=== PATIENT | female | born 1965 ===

== ENCOUNTER 2017-04-16 21:31 | Emergency (ER) | payer BC ==
[2017-04-16 21:50] VITALS: TEMP 98.6
[2017-04-16] MEDS ORDERED: DiphenhydrAMINE 50 mg/ml Inj IVP STA (22:31)
[2017-04-16] MEDS ORDERED: Sodium Chloride 0.9% 1,000 ML IV STA (22:31)
--- NOTE | 2017-04-16 23:25 | CT ---
EXAM: CT Neck Without Intravenous Contrast CLINICAL HISTORY: 51 years old, female; Signs and symptoms; Other: Throat pain/feeling of throat closing TECHNIQUE: Axial computed tomography images of the neck without intravenous contrast. All CT scans at this facility use one or more dose reduction techniques, viz.: automated exposure control; ma/kV adjustment per patient size (including targeted exams where dose is matched to indication; i.e. head); or iterative reconstruction technique. Coronal and sagittal reformatted images were created and reviewed. COMPARISON: No relevant prior studies available. FINDINGS: Nasopharynx: Unremarkable. Oropharynx: Unremarkable. No significant tonsillar enlargement. Hypopharynx: Unremarkable. Larynx: Unremarkable. Normal epiglottis. Trachea: Unremarkable. Retropharyngeal space: Unremarkable. Submandibular/parotid glands: Unremarkable. Thyroid: Unremarkable. No enlarged or calcified nodules. Bones/joints: No acute fracture. Soft tissues: Unremarkable. Vasculature: No acute findings. Lymph nodes: Unremarkable. No pathologically enlarged lymphadenopathy. Lung apices: Unremarkable as visualized. IMPRESSION: Unremarkable contrast-enhanced CT the soft tissues of the neck, as detailed above.
[2017-04-16 23:31] LABS: BASO # 0.02 K/mm3 (0.0-2.0); BASO % 0.2 % (0.0-3.0); EOS # 0.3 (0.0-0.7); EOS % 3.6 % (1.5-5.0); GRAN # 5.81 (1.4-6.5); GRAN % 67.7 % (50.0-68.0); HEMATOCRIT 39.5 % (36.0-48.0); LYMPH # 1.8 (1.2-3.4); LYMPH % 20.6 % (22.0-35.0); MEAN CELL VOLUME 91.6 fl (80.0-105.0); MEAN CORPUSCULAR HEMOGLOBIN 30.6 pg (25.0-35.0); MEAN CORPUSCULAR HGB CONC 33.4 g/dl (31.0-37.0); MEAN PLATELET VOLUME 11.8 fl (7.0-11.0); MONO # 0.7 (0.1-0.6); MONO % 7.9 % (1.0-6.0); RED CELL DISTRIBUTION WIDTH 13.4 % (11.5-14.5); WHITE BLOOD COUNT 8.6 10^3/ul (4.5-11.0)
[2017-04-16 23:36] LABS: ALB/GLOB RATIO 1.7 (1.1-1.8); ALKALINE PHOSPHATASE 79 U/L (38-133); ALT/SGPT 29 U/L (7-56); AST/SGOT 26 U/L (15-39); BILIRUBIN,TOTAL 0.5 mg/dL (0.2-1.3); BLOOD UREA NITROGEN 12 mg/dL (7-21); CALCIUM 9.5 mg/dL (8.4-10.5); CARBON DIOXIDE 28 mmol/L (21-33); CHLORIDE 105 mmol/L (98-107); GFR AFRICAN-AMERICAN > 60; GLUCOSE,RANDOM 103 mg/dL (70-110); POTASSIUM 3.8 mmol/L (3.6-5.0); SODIUM 144 mmol/L (132-148); TOTAL PROTEIN 7.3 g/dL (5.8-8.3)
--- NOTE | 2017-04-16 23:36 | ED PDOC ---
Arrival/HPI - General Chief Complaint: ENT Problem Time Seen by Provider: 04/16/17 22:31 Historian: Patient - History of Present Illness Narrative History of Present Illness (Text): 04/16/17 23:50 51-year-old female presents today with sore throat and feeling of throat closing that started around 7 PM after taking a drink of Cristina [place] Esther. Patient denies history of allergy to this drink. Patient states she has taken this in the past. Patient states shortly after taking a drink she felt a burning sensation in the throat and then she tried to drink it again and the pain worsened. No medications have been taken for pain at home. She is complaining of difficulty swallowing, pain with swallowing and feeling like the throat is getting tight. She denies chest pain or shortness of breath. No other complaints Past Medical History - Provider Review Nursing Documentation Reviewed: Yes - Travel History Have you recently traveled outside [place] w/in the past 3 mons?: No - Tetanus Immunization Tetanus Immunization: Unknown - Reproductive Menopause: Yes - Psychiatric Hx Substance Use: No Family/Social History - Physician Review Nursing Documentation Reviewed: Yes Family/Social History: Unknown Family HX Smoking Status: Never Smoked Hx Alcohol Use: No Hx Substance Use: No Allergies/Home Meds Allergies/Adverse Reactions: Allergies No Known Allergies Allergy (Verified 04/16/17 21:49) Review of Systems - Review of Systems Constitutional: absent: Fatigue, Fevers ENT: Sore Throat. absent: Sinus Congestion Respiratory: absent: SOB, Cough Cardiovascular: absent: Chest Pain, Palpitations Gastrointestinal: absent: Abdominal Pain, Nausea, Vomiting Genitourinary Female: absent: Dysuria, Frequency, Hematuria Musculoskeletal: absent: Arthralgias, Back Pain, Neck Pain Skin: absent: Rash, Pruritis Neurological: absent: Headache, Dizziness Psychiatric: absent: Anxiety, Depression Physical Exam Vital Signs Reviewed: Yes Vital Signs Temp Pulse Resp BP Pulse Ox 04/16/17 23:31 82 17 113/68 99 04/16/17 21:50 98.6 F 89 18 156/77 H 95 Temperature: Afebrile Blood Pressure: Hypertensive Pulse: Regular Respiratory Rate: Normal Appearance: Positive for: Well-Appearing, Non-Toxic, Uncomfortable Pain Distress: None Mental Status: Positive for: Alert and Oriented X 3 - Systems Exam Head: Present: Atraumatic Pupils: Present: PERRL Extroacular Muscles: Present: EOMI Conjunctiva: Present: Normal Mouth: Present: Moist Mucous Membranes, Normal Lips, Normal Tounge, Normal Teeth. No: Drooling, Trismus Pharnyx: Present: ERYTHEMA. No: EXUDATE, TONSILS ENLARGED, Peritonsilar Swelling, Uvular Deviation, Muffled/Hoarse Voice Nose (External): Present: Atraumatic Nose (Internal): Present: Normal Inspection Neck: Present: Normal Range of Motion, Trachea Midline. No: Lymphadenopathy Respiratory/Chest: Present: Clear to Auscultation, Good Air Exchange. No: Respiratory Distress, Accessory Muscle Use Cardiovascular: Present: Regular Rate and Rhythm, Normal S1, S2. No: Murmurs Neurological: Present: GCS=15 Skin: Present: Warm, Dry, Normal Color. No: Rashes Psychiatric: Present: Alert, Oriented x 3 Medical Decision Making ED Course and Treatment: 04/16/17 23:35 Patient is nontoxic well-appearing in no distress with stable vital signs no angioedema. pt c/o sore throat, throat swelling/pain with swallowing. Lungs are clear to auscultation bilaterally there is no wheezing noted. The airway is patent Benadryl 25 mg IV Solu-Medrol 125 mg IV Pepcid 20 mg IV toradol IV ct neck; FINDINGS: Nasopharynx: Unremarkable. Oropharynx: Unremarkable. No significant tonsillar enlargement. Hypopharynx: Unremarkable. Larynx: Unremarkable. Normal epiglottis. Trachea: Unremarkable. Retropharyngeal space: Unremarkable. Submandibular/parotid glands: Unremarkable. Thyroid: Unremarkable. No enlarged or calcified nodules. Bones/joints: No acute fracture. Soft tissues: Unremarkable. Vasculature: No acute findings. Lymph nodes: Unremarkable. No pathologically enlarged lymphadenopathy. Lung apices: Unremarkable as visualized. IMPRESSION: Unremarkable contrast-enhanced CT the soft tissues of the neck, as detailed above. Patient reassessment: After medications patient is feeling much better the lungs are clear to auscultation bilaterally the airway is patent the patient is speaking in full sentences. I advised taking Benadryl every 6 hours as well as prednisone daily x4 days. will start patient on amoxicillin for possible throat infection as pharynx is erythematous. Advised patient to follow up with primary care physician within the next 2 days and return if symptoms worsen persist or if new symptoms develop. Patient verbalizes understanding of discharge instructions and need for immediate followup. all aspects of this case were discussed the attending of record. Impression : Throat pain Benadryl every 6 hours as needed for itch Prednisone once daily x4 days Pepcid one tablet daily Amoxicillin; 3 times daily x 10 days. Follow up with the primary care physician tomorrow Follow up with the ENT specialist within the next 2 days. Return if symptoms worsen persist or if new symptoms develop: Shortness of breath, feeling of throat closing, difficulty speaking or any other concerning symptoms develop - Lab Interpretations Lab Results: 04/16/17 23:15 04/16/17 23:15 Lab Results 04/16/17 23:15: WBC 8.6, RBC 4.31, Hgb 13.2, Hct 39.5, MCV 91.6, MCH 30.6, MCHC 33.4, RDW 13.4, Plt Count 183, MPV 11.8 H, Gran % 67.7, Lymph % (Auto) 20.6 L, Glynn % (Auto) 7.9 H, Eos % (Auto) 3.6, Baso % (Auto) 0.2, Gran # 5.81, Lymph # 1.8, Glynn # 0.7 H, Eos # 0.3, Baso # 0.02 04/16/17 23:15: Sodium 144, Potassium 3.8, Chloride 105, Carbon Dioxide 28, Anion Gap 15, BUN 12, Creatinine 0.9, Est GFR ( Amer) > 60, Est GFR (Non- Af Amer) > 60, Random Glucose 103, Calcium 9.5, Total Bilirubin 0.5, AST 26, ALT 29, Alkaline Phosphatase 79, Total Protein 7.3, Albumin 4.5, Globulin 2.7, Albumin/Globulin Ratio 1.7 - RAD Interpretation Radiology Orders: 04/16/17 22:33 NECK SOFT TISSUE W/O CONTRAST [CT] Stat - Medication Orders Current Medication Orders: Discontinued Medications Diphenhydramine HCl (Benadryl) 25 mg IVP STAT STA Stop: 04/16/17 22:32 Last Admin: 04/16/17 23:20 Dose: 25 mg Famotidine (Pepcid) 20 mg IVP STAT STA Stop: 04/16/17 22:35 Last Admin: 04/16/17 23:20 Dose: 20 mg Sodium Chloride (Sodium Chloride 0.9%) 1,000 mls @ 999 mls/hr IV .Q1H1M STA Stop: 04/16/17 23:31 Last Admin: 04/16/17 23:19 Dose: 999 mls/hr Ketorolac Tromethamine (Toradol) 30 mg IVP STAT STA Stop: 04/16/17 23:50 Last Admin: 04/16/17 23:57 Dose: 30 mg Methylprednisolone (Solu-Medrol) 125 mg IVP STAT STA Stop: 04/16/17 22:32 Last Admin: 04/16/17 23:20 Dose: 125 mg Disposition/Present on Arrival - Present on Arrival Any Indicators Present on Arrival: No History of DVT/PE: No History of Uncontrolled Diabetes: No Urinary Catheter: No History of Decub. Ulcer: No History Surgical Site Infection Following: None - Disposition Have Diagnosis and Disposition been Completed?: Yes Diagnosis: Throat pain Disposition: HOME/ ROUTINE Disposition Time: 23:57 Patient Plan: Discharge Patient Problems: Current Active Problems Problem Status Onset Throat pain Acute Condition: GOOD Discharge Instructions (ExitCare): General Allergic Reaction (ED) Additional Instructions: Benadryl every 6 hours as needed for itch Prednisone once daily x4 days Pepcid one tablet daily Amoxicillin; 3 times daily x 10 days. Follow up with the primary care physician tomorrow Follow up with the ENT specialist within the next 2 days. Return if symptoms worsen persist or if new symptoms develop: Shortness of breath, feeling of throat closing, difficulty speaking or any other concerning symptoms develop Prescriptions: Amoxicillin 500 mg PO TID #30 tab DiphenhydrAMINE [Benadryl] 25 mg PO Q6H #20 cap Famotidine [Pepcid] 20 mg PO DAILY #30 tab Ibuprofen [Motrin] 600 mg PO Q6H PRN #20 tab PRN Reason: pain/fever reduction predniSONE [predniSONE Tab] 3 tab PO DAILY #12 tab Referrals: Óscar Cortez DO [Staff Provider] - Follow up with primary Betty Michelle MD [Staff Provider] - Follow up with primary Forms: [employer] (Nepali), WORK NOTE
[2017-04-17 00:54] VITALS: BP 113/68; PULSE 82; RESP 17; O2SAT 99
== END 2017-04-17 00:54 | disposition home or self-care (01) ==
LOC: ED 21:31
DX: R07.0 Pain in throat (principal)
CPT/HCPCS: 70490; 80053; 85025; 96374; 96375; 99283; J1200; J1885; J2930; J7040